=== PATIENT | male | born 1955 | race Caucasian/White ===

== ENCOUNTER → 2016-10-16 | Day surgery (SDC) | payer OTHER ==
[~2016-10-16] VITALS: Ht 175.3 cm; Wt 94.8 kg
[~2016-10-16] MED LIST: ASPIR 8181 MG PO; CENTRUM SILVER1 EAC4 PO; LISINOPRIL10 MG PO; MAGNESIUM OXID400 MG PO; VITAMIN D1000 UNIT PO; XALATAN2.5 M1 OPHTHALMIC
--- NOTE | ~2016-10-16 | S ---
[facility] [place] [address] SURGICAL PATH RPT PROCEDURE Name: JP PA Room #: REG [facility].#: [id number] Admission: 10/16/16 Date of : 51 Discharge: Report #: [id number] Path Case #: [id number] PATHOLOGY REPORT COLLECTION DATE: 10/16/2016 RECEIVED DATE: 10/16/2016 SUBMITTING PHYS: Dr. Tio Holman OTHER PHYS: SPECIMEN(S) RECEIVED: A.BCCA right upper lid * * * * * * * * * * * * FINAL DIAGNOSIS: Skin, right upper lid, re-excision: - No residual basal cell carcinoma present. - Margins of resection free of malignancy. (IUV:mgr; 10/17/2016) PATHOLOGIST: Shakila Cat M.D. REPORT ELECTRONICALLY SIGNED BY: Shakila Cat M.D. DATE/TIME: 10/17/2016 13:47 * * * * * * * * * * * * GROSS PATHOLOGY: The specimen is received fresh from the OR, labeled with the patient's name, "BCCA right upper lid", and consists of a triangular piece of skin with underlying tissue (lid) as well as lashes. The base of the triangle represents the inferior margin. The inferior margin is assigned 12:00, the lateral is assigned 3:00, the superior is assigned 6:00, and the medial is assigned 9:00. At this point, the specimen is inked as follows: 12:00-6:00 is inked black, 6:00-9:00 is inked blue, and 9:00-12:00 is inked green. At this point, the specimen is serially sectioned and entirely submitted for frozen section as FSA1, subsequently submitted for permanent sections as A1. (IUV:marimar; 10/16/2016) FROZEN SECTION DIAGNOSIS: (Dr. Shakila Cat) FSA1, right upper lid, re-excision: - Margins negative. Testing performed by [facility] at [facility] [address] [place] [address] [facility] [place] [address] SURGICAL PATH RPT PROCEDURE Name: JP PA Room #: REG [facility].#: [id number] Admission: 10/16/16 Date of : 51 Discharge: Report #: [id number] Path Case #: [id number] CLINICAL HISTORY: History of previously biopsied basal cell carcinoma. INITIAL CPT CODE(S): A; 88738, 58027 Professional services performed by [facility] at [facility] [address] [place] [address] Technical [facility] performed by [facility] at [address] [place] [address], [place] [address]. [facility] [address] [place] [address] PHONE: [phone] DIRECTOR: Raphael Figueroa M.D. * * * END OF REPORT * * *
--- NOTE | ~2016-10-16 | O ---
[facility] [place] [address] OPERATIVE REPORT Name: JP PA Room #: REG [facility].#: [id number] Admission: 10/16/16 Attend Phys: Tio Holman MD Discharge: Date of : 51 Report #: [id number] THIS REPORT FOR: //name// CC: [facility] physician/PCP Sudeep Holman DATE OF SERVICE: 10/16/2016 PREOPERATIVE DIAGNOSIS: Basal cell carcinoma of right upper lid. POSTOPERATIVE DIAGNOSIS: Basal cell carcinoma of right upper lid. PROCEDURE: Excision of basal cell carcinoma of right upper lid with frozen section control of tumor excision and myocutaneous flap repair of defect. SURGEON: Tio Holman M.D. DIRECTOR [employer]: None. ANESTHESIA: MAC. COMPLICATIONS: None. INDICATIONS FOR SURGERY: This pleasant 61-year-old gentleman has a biopsy proven basal cell carcinoma in his right upper lid. He presents today for excision of the residual right upper lid lesion with frozen sections and repair of that defect. Informed consent was obtained to include, but not limited to the potential risk for loss of vision, bleeding, infection, failure to improve the problem, the potential need for further surgery or treatment. DESCRIPTION OF PROCEDURE: The patient was taken to the operating room where 2% Xylocaine with epinephrine mixed with equal parts of 0.75% Marcaine with Wydase was administered transcutaneously and transconjunctivally to the right upper lid and the right lateral canthus in addition to the right temporal fossa. The patient was subsequently prepped and draped in the usual sterile fashion. A fine tip skin marking was then utilized to outline the lesion with 1-2 mm of normal-appearing tissue around its margin. The incisions were then made perpendicularly across the eyelid margin and drawn to a point around the orbital rim. The specimen was passed off the field on to a drawing previously made for the pathologist. As she took the specimen, the field was dried with monopolar cautery. The pathologist snap-froze the specimen and found that the margins were clear. [address] [address] OPERATIVE REPORT Name: JP PA Room #: REG [facility].#: [id number] Admission: 10/16/16 Attend Phys: Tio Holman MD Discharge: Date of : 51 Report #: [id number] With the understanding that the tumor has been completely removed, attention was turned to reconstruction of the defect. A myocutaneous flap was then developed laterally. Hemostasis was then re-achieved. The flap was rotated into position and secured with interrupted buried 6-0 Vicryl sutures deep. 7-0 Vicryl sutures were placed on the eyelid margin. Vicryl sutures subcutaneously and 6-0 plain gut sutures were placed more superficially for the closure anteriorly and superiorly. The wound was then cleaned and dressed with erythromycin ointment and the patient subsequently transported to the recovery area having tolerated the procedures well with no anesthetic or operative complications being noted. <ELECTRONICALLY SIGNED> By: Tio Holman MD 10/23/16 0621 [id number] 1716 Tio Holman MD /nt
[2016-10-16 13:21] VITALS: BP 121/73
== END ==
LOC: OR 09:12
DX: C44.112 Basal cell carcinoma of skin of right eyelid, including canthus (principal); K21.9 Gastro-esophageal reflux disease without esophagitis; I10 Essential (primary) hypertension; Z98.890 Other specified postprocedural states
CPT/HCPCS: 50010; 50101; 50398; 51636; 56528; 56531; 62110; 62850; 70005